=== PATIENT | female | born 1980 | race Caucasian/White ===

== ENCOUNTER 2020-08-22 12:38 | Outpatient (CLI) | payer BC ==
--- NOTE | 2020-08-22 14:04 | RAD ---
RIGHT TOE THREE VIEW: 08/22/20 HISTORY: Assess healing. COMPARISON: Radiographs 08/07/20. FINDINGS: There is a coronal oblique fracture through the small toe proximal phalanx head/neck. There appears t o be some low grade bridging new bone formation. No further displacement. IMPRESSION: Healing small toe fracture. POS: OFF
== END 2020-08-22 12:39 | disposition home or self-care (01) ==
LOC: SCSRAD 12:38
PROVIDERS: ATTEND Family Medicine Sports Medicine
DX: S92.511D Displaced fracture of proximal phalanx of right lesser toe(s), subsequent encounter for fracture with routine healing (principal)

== ENCOUNTER 2020-09-21 07:56 | Outpatient (CLI) | payer BC ==
--- NOTE | 2020-09-21 08:38 | RAD ---
RIGHT TOE 3 VIEWS: HISTORY: Fracture. FINDINGS/IMPRESSION: The healing oblique fracture involving the proximal phalanx of the little toe is again seen without c hange in alignment. Fracture line is again seen. POS: OFF
[2020-09-21 11:29] LABS: #Eosinphils 0.1 thou/uL (0.0-0.7); #Lymphocytes 1.7 thou/uL (1.20-3.40); #Monocytes 0.5 thou/uL (0.11-0.59); #Neutrophils 2.5 thou/uL (1.40-6.50); %Basophils 0.8 % (0.0-1.0); %Eosinophils 2.3 % (0.0-10.0); %Lymphocytes 35.2 % (21.0-51.0); %Monocytes 10.6 % (0.0-10.0); %Neutrophils 51.2 % (42.0-75.0); Hemoglobin 11.5 g/dL (12.0-16.0); Hypochromia SLIGHT = 6-15 cells (100X) (0-5/hpf); MDiff Complete? YES; Mean Corpuscular HGB CONC 30.2 g/dL (32.0-36.0); Mean Corpuscular Volume 76.1 fL (78.0-98.0); Microcytosis SLIGHT = 6-15 cells (100X) (0-5/hpf); Ovalocytes SLIGHT = 2-5 cells (100X) (0-1/hpf); Platelet Count 213 thou/uL (130-400); Platelet Morphology Comment Appears Adequate; Polychromasia SLIGHT = 2-3 cells (100X) (0-2/hpf); RBC Distribution Width 23.2 % (11.5-14.5); Red Blood Cell (RBC) Count 5.02 mill/uL (4.20-5.40); White Blood Cell (WBC) Count 4.9 thou/uL (4.8-10.8)
== END 2020-09-21 07:57 | disposition home or self-care (01) ==
LOC: SCSRAD 07:56
PROVIDERS: ATTEND Family Medicine Sports Medicine
DX: S92.511D Displaced fracture of proximal phalanx of right lesser toe(s), subsequent encounter for fracture with routine healing (principal); D64.9 Anemia, unspecified
CPT/HCPCS: 36415; 85025